=== PATIENT | female | born 1980 | race Caucasian/White ===

== ENCOUNTER 2024-04-01 22:08 | Observation (INO) | payer OTHER, SELFPAY ==
[2024-04-01 22:09] VITALS: PULSE 91
--- NOTE | 2024-04-01 22:09 | XRR_ITS ---
PROCEDURE INFORMATION: Exam: XR Chest Exam date and time: 04/01/2024 10:31 PM Age: 43 years old Clinical indication: Pain; Chest pressure; Additional info: Cp TECHNIQUE: Imaging protocol: Radiologic exam of the chest. Views: 1 view. COMPARISON: No relevant prior studies available. FINDINGS: Lungs: No definitive consolidation. Pleural spaces: No pleural effusion or pneumothorax. Heart/Mediastinum: Heart size appears within normal limits. Ovoid opacity in the right cardiophrenic angle likely reflects prominent epicardial fat pad. Bones/joints: No acute osseous abnormalities are seen. XR/XR chest 1V portable [id number] IMPRESSION: 1. Ovoid opacity in the right cardiophrenic angle likely reflects prominent epicardial fat pad. CT or lateral view can be obtained as clinically indicated. 2. No definitive evidence of acute cardiopulmonary disease.
[2024-04-01 22:15] VITALS: BP 177/110; PULSE 88; RESP 28; TEMP 36.9; O2SAT 100; BMI 38.7
--- NOTE | 2024-04-01 22:18 | ECG_ITS ---
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 Measurements Intervals [place] Rate: 94 P: 10 IN: 120 QRS: -7 QRSD: 90 T: 33 QT: 320 QTc: 400 Interpretive Statements SINUS RHYTHM MINIMAL VOLTAGE CRITERIA FOR LVH, CONSIDER NORMAL VARIANT [MEETS CRITERIA IN ONE OF: R(aVL), S(V1), R(V5), R(V5/V6)+S(V1)] No previous ECG available for comparison Electronically Signed On 04-02-2024 16:50:30 CDT by Lonnie Bernal M.D. [id number]
--- NOTE | 2024-04-01 22:22 | ED_ITS ---
HPI - Chest Pain 2 General: Chief Complaint: Chest Pain Stated Complaint: Chest Pains\Jaw\Neck Time Seen by Provider: 04/01/24 22:09 Source: patient Mode of arrival: ambulatory Limitations: no limitations History of Present Illness: 43-year-old female states she started sanchez ving chest pain roughly 2 hours ago. She is a pressure type pain across her chest and goes down her arm into her jaw she had some slight dyspnea and nausea with the pain. Rates the pain a 5 out of 10 currently she states it does hurt worse with deep inspiration denies any cough or fever Associated symptoms: Reports dyspnea and vomiting; Deny abdominal pain, fever(s) or nausea Review of Systems 2 Const: Denies: fever(s), chills, body aches or change in appetite Eyes: Denies: eye discomfort ENMT: Denies: throat pain or dental pain Card: Reports: chest pain Resp: Reports: dyspnea GI: Reports: vomiting; Denies: abdominal pain, nausea or diarrhea : Denies: dysuria Musc: Denies: neck pain or back pain Skin/Breast: Denies: rash Neuro: Denies: headache(s) Physical Exam 2 Const: COMMON NORMALS: no acute distress, patient oriented x3 and healthy appearing HENMT: COMMON NORMALS: normocephalic and atraumatic HEAD & SCALP: n ormocephalic and atraumatic Eye: COMMON NORMALS: Equal, round and reactive pupils present and EOMs intact bilaterally PUPIL: Yes Equal, round and reactive pupils present Neck/C-Spine: COMMON NORMALS: full ROM and supple Chest: COMMONS NORMALS: normal inspection of the chest and normal palpation of entire chest wall Resp: COMMON NORMALS: normal respiratory effort, No retractions, No use of accessory muscles and clear to auscultation bilaterally AUSCULTATION: clear to auscultation bilaterally Cardio: COMMON NORMALS: regular rate, regular rhythm and No murmurs present (Cardio) RATE: regular rate RHYTHM: regular rhythm GI: COMMON NORMALS: Normal to inspection, nondistended, normoactive bowel sounds present, Soft to palpation, non-tender and no masses PALPATION: Yes Soft to palpation Extremity: COMMON NORMALS: normal to inspection and full ROM Neuro: COMMON NORMALS: patient oriented x3, moves all extremities and no focal motor deficits Psych: COMMON NORMALS: mental status grossly normal, Normal thought process present and cooperative THOUGHT PROCESS: Normal thought process present Skin: COMMON NORMALS: no rashes or lesions noted and no wounds GENERAL SKIN EXAM: no rashes or lesions noted Course 2 Vital Signs: Vital signs: Vital Signs Temperature 98.4 F 04/01/24 22:15 Pulse Rate 80 04/02/24 00:55 Respiratory Rate 16 04/02/24 00:55 Blood Pressure 147/95 04/02/24 00:55 Pulse Oximetry 95 04/02/24 00:55 Oxygen Delivery Me thod Room Air 04/01/24 22:15 MDM - Chest Pain Medical Decision Making Patient presents here with chest pain is relieved with nitro her D-dimer here is negative troponins are negative as well she did have another episode of chest pain here that was relieved with nitro I spoke to the hospitalist and will admit for ACS rule out at this time. Medical Records I reviewed the patient's medical records. Lab Data I reviewed the patient's lab results. 04/01/24 22:25 04/01/24 22:25 Radiology Impressions Chest X-Ray 04/01/24 22:09 IMPRESSION: 1. Ovoid opacity in the right cardiophrenic angle likely reflects prominent epicardial fat pad. CT or lateral view can be obtained as clinically indicated. 2. No definitive evidence of acute cardiopulmonary disease. Laboratory Results WBC 10.43 10^3/uL (3.29-11.43) 04/01/24 22: RBC 5.07 10^6/uL (3.85-5.65) 04/01/24 22:25 Hgb 14.60 g/dL (11.27-16.99) 04/01/24 22: Hct 44.5 % (36-47) 04/01/24 22: MCV 87.8 fl (85-98) 04/01/24 22: MCH 28.8 pg (27-33) 04/01/24 22: MCHC 32.8 g/dL (30-55) 04/01/24 22: RDW 12.2 % (12.1-15.1) 04/01/24 22: Plt Count 272 10^3/cmm (157-399) 04/01/24 22: MPV 9.4 fL (7.4-10.4) 04/01/24 22: Neut % (Auto) 68.0 % 04/01/24 22: Lymph % (Auto) 22.3 % 04/01/24 22:25 [place] % (Auto) 8.3 % 04/01/24 22: Eos % (Auto) 0.6 % 04/01/24 22: Baso % (Auto) 0.4 % 04/01/24 22: Neut # (Auto) 7.09 10^3/uL (1.8-7.7) 04/01/24 22: Lymph # (Auto) 2.3 10^3/uL (0.8-4.8) 04/01/24 22: [place] # (Auto) 0.9 10^3/uL (0.2-0.9) 04/01/24: Eos # (Auto) 0.1 10^3/uL (0.0-0.8) 04/01/24 22: Baso # (Auto) 0.0 10^3/uL (0.0-0.1) 04/01/24: Nucleated RBC % (auto) 0 % 04/01/24: Nucleated RBCs # 0.0 /100WBC 04/01/24 22: D-Dimer <= 0.27 ug/mLFEU (0-0.59) 04/01/24 22: Sodium 138 mmol/L (136-145) 04/01/24 22: Potassium 4.1 mmol/L (3.5-5.1) 04/01/24: Chloride 100 mmol/L (98-107) 04/01/24 22: Carbon Dioxide 24 mmol/L (22-29) 04/01/24 22: Anion Gap 18.1 (5-19) 04/01/24 22: BUN 15 mg/dL (6-20) 04/01/24 22: Creatinine 0.7 mg/dL (0.5-0.9) 04/01/24 22: GFR Calculation 91.8 mL/min (90-130) 04/01/24 22: Glucose 88 mg/dL (65-115) 04/01/24 22: Calculated Osmolality 286 mOsm/kg (285-295) 04/01/24 22:25 Calcium 9.5 mg/dL (8.5-10.5) 04/01/24 22:25 Total Bilirubin 0.2 mg/dL (0.15-1.2) 04/01/24 22:25 AST 19 U/L (0-32) 04/01/24 22:25 ALT 26 U/L (0-33) 04/01/24 22:25 Alkaline Phosphatase 100 U/L (35-105) 04/01/24 22:25 Troponin T Baseline < 6 ng/L (0-10) 04/01/24 22:25 Troponin T 120 Minute 6.00 ng/L (0-10) 04/02/24 00:25 Delta Troponin T 0.67045 ABS# (0-10) 04/02/24 00:25 Total Protein 8.1 g/dL (6.6-8.7) 04/01/24 22:25 Albumin 4.8 g/dL (3.5-5.2) 04/01/24 22:25 Globulin 3.3 g/dL (1.3-4.6) 04/01/24 22:25 Lipase 106 U/L (13-60) H 04/01/24 22:25 All radiology interpretation(s) finalized by discharge EKG Data EKG 1: I personally reviewed and interpreted this EKG as follows: EKG interpretation date: 04/01/24 EKG interpretation time: 22:18 Interpretation: nsr hr 94 no stemi qrs 90 qtc 371 EKG 2: I personally reviewed and interpreted this EKG as follows: EKG interpretation date: 04/01/24 EKG interpretation time: 23:45 Interpretation: nsr hr [address] or t wave abnormalities qrs93 qtc 372 Discharge Plan Discharge Patient Disposition: Admitted As Inpatient Clinical Impression: Chest pain Condition: Stable Coding Level of Care Code ED Baler Operator for Savi Peter
[2024-04-01] MEDS: aspirin 81 mg Chew Tablet 324 MG PO (22:31)
[2024-04-01 22:32] LABS: Basophils % 0.4 %; Eosinophils # 0.1 10^3/uL (0.0-0.8); Eosinophils % 0.6 %; Hematocrit 44.5 % (36-47); Lymphocytes # 2.3 10^3/uL (0.8-4.8); Lymphocytes % 22.3 %; Mean Corpuscular HGB Conc 32.8 g/dL (30-55); Mean Corpuscular Hemoglobin 28.8 pg (27-33); Mean Corpuscular Volume 87.8 fl (85-98); Mean Platelet Volume 9.4 fL (7.4-10.4); Monocytes # 0.9 10^3/uL (0.2-0.9); Monocytes % 8.3 %; Neutrophils # 7.09 10^3/uL (1.8-7.7); Nucleated Red Blood Cells % 0 %; Platelet Count 272 10^3/cmm (157-399); Red Blood Count 5.07 10^6/uL (3.85-5.65); Red Cell Distribution Width 12.2 % (12.1-15.1); White Blood Count 10.43 10^3/uL (3.29-11.43)
[2024-04-01] MEDS: nitroglycerin 0.4 mg sublingual Tablet 0.400000000000000022 MG SUBLINGUAL (22:45)
[2024-04-01] MEDS: ondansetron 2 mg/ML SDV 2 mL 4 MG IVP (22:49)
[2024-04-01] MEDS: morphine 4 mg/mL SDV 1 mL IVP (22:49)
[2024-04-01 22:51] LABS: D Dimer <= 0.27 ug/mLFEU (0-0.59)
[2024-04-01 22:57] LABS: Troponin(5th) Baseline < 6 ng/L (0-10)
[2024-04-01 23:04] LABS: Alanine Aminotransferase 26 U/L (0-33); Albumin Level 4.8 g/dL (3.5-5.2); Alkaline Phosphatase 100 U/L (35-105); Aspartate Amino Transferase 19 U/L (0-32); Blood Urea Nitrogen 15 mg/dL (6-20); Calcium 9.5 mg/dL (8.5-10.5); Carbon Dioxide 24 mmol/L (22-29); Chloride 100 mmol/L (98-107); Creatinine Clr Calc Pharmacy 130.7757; Globulin 3.3 g/dL (1.3-4.6); Glomerular Filtration Rate 91.8 mL/min (90-130); Glucose 88 mg/dL (65-115); Lipase 106 U/L (13-60); Osmolality Calculated 286 mOsm/kg (285-295); Sodium 138 mmol/L (136-145); Total Bilirubin 0.2 mg/dL (0.15-1.2); Total Protein 8.1 g/dL (6.6-8.7)
[2024-04-01 23:05] VITALS: BP 152/75; PULSE 89; RESP 16; O2SAT 99
[2024-04-01 23:25] LABS: Anion Gap 18.1 (5-19); Potassium 4.1 mmol/L (3.5-5.1)
[2024-04-01 23:46] VITALS: BP 155/92; PULSE 87; RESP 16; O2SAT 97
[2024-04-02] VITALS (16 sets, daily range): BP systolic 114–147; BP diastolic 70–95; PULSE 80–103; RESP 16–20; TEMP 36.7–37.3; O2SAT 95–100; BMI 41.4
--- NOTE | 2024-04-02 00:09 | ECG_ITS ---
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 Measurements Intervals [place] Rate: 85 P: 14 OR: 128 QRS: -6 QRSD: 93 T: 31 QT: 330 QTc: 394 Interpretive Statements SINUS RHYTHM No previous ECG available for comparison Electronically Signed On 04-02-2024 16:53:05 CDT by Lonnie Bernal M.D. [id number]
[2024-04-02] MEDS: nitroglycerin 0.4 mg sublingual Tablet 0.400000000000000022 MG SUBLINGUAL ×4 (00:33→03:12)
[2024-04-02 00:52] LABS: Troponin 5 2HR Delta 0.00001 ABS# (0-10)
--- NOTE | 2024-04-02 02:00 | P.HP_ITS ---
Providers/Chief Complaint 2 Chief Complaint: Chest Pains\Jaw\Neck History of Present Illness Shakira Iraheta is a 43 year old female, mother of a special needs child with autism and taking care of her father at home who has dementia, with history of migraine headaches, ADHD, sleeve gastrectomy, PCOS, recently is being assessed for possibility of rheumatologic disease by her primary provider, awaiting referral to rheumatology, although states wait time is about a year for question of possible rheumatologic condition. Presented to the hospital due to about 2 hours of central lower chest pain, initially radiating to her jaw. Reported radiation to the right arm to the ER physician. Received relief from nitroglycerin in ER. Initial blood pressure very elevated 177/110 without history of hypertension. Checks her blood pressure normally once a day and systolic blood pressures usually around 120s. Denies any preceding episodic chest pains. Denies any cough, shortness of breath. Troponin normal at baseline and 2 hours. EKG machine read as sinus rhythm, unremarkable, on examination appears to have some questionable atypical ST elevation isolated to lead II noted by ER physician, not suggestive of STEMI. Lipase with elevation up to 106. Chest x-ray with ovoid opacity in the right cardiophrenic angle question of epicardial fat pad. Otherwise without definitive cardiopulmonary abnormality. Reports that in the past had history of paroxysms of atrial fibrillation. Additionally has been having intertrigo yeast rash in the groin skin folds. Review of Systems 2 Const: Denies: fever(s), chills, body aches or malaise ENMT: Denies: throat pain, oral sores or ear or mastoid pain Card: Reports: chest pain and lightheadedness (occasional); Denies: edema or dyspnea on exertion Resp: Denies: dyspnea, productive cough, change in phlegm color or hemoptysis GI: Denies: abdominal pain, nausea, vomiting, diarrhea, constipation, hematochezia or melena : Denies: flank pain, urinary frequency or hematuria Musc: Denies: back pain, joint swelling or joint redness Skin/Breast: Reports: rash (groin intertrigo); Denies: new lesions Neuro: Denies: confusion Medications/Allergies Allergies Allergy/AdvReac Type Severity Reaction Status Date / Time bupropion [From Wellbutrin] Allergy ADR-Hyperte Verified 04/01/24 22:26 nsion PFSH Acute 2 PFSH: Medical History Paroxysmal atrial fibrillation Pericardial cyst Migraines ADHD PCOS (polycystic ovarian syndrome) Surgical History History of sleeve gastrectomy Family History Family/Other Autism Child Father Dementia Social History Smoking and tobacco/nicotine status: never used tobacco/nicotine Alcohol intake: never Lives independently: Yes Household members: family Current occupational status: employed Vitals/I&O/Wt Last Vital Signs Temp 98.4 F 04/01/24 22:15 Pulse 80 04/02/24 00:55 Resp 16 04/02/24 00:55 BP 147/95 04/02/24 00:55 Pulse Ox 95 04/02/24 00:55 O2 Del Method Room Air 04/01/24 22:15 Weight last 48 hrs Weight 108.862 kg Physical Exam 2 Const: COMMON NORMALS: patient oriented x3 and alert GENERAL APPEARANCE: c ooperative NUTRITIONAL APPEARANCE: overweight ORIENTATION/CONSCIOUSNESS: Y es awake HENMT: COMMON NORMALS: oropharynx normal Neck/C-Spine: COMMON NORMALS: no JVD Resp: COMMON NORMALS: normal respiratory effort and clear to auscultation bilaterally AUSCULTATION: clear to auscultation bilaterally Cardio: COMMON NORMALS: no JVD, regular rhythm, S1 normal heart sound present, S2 normal heart sound present and No murmurs present (Cardio) RHYTHM: regular rhythm HEART SOUNDS: S1 normal heart sound present and S2 normal heart sound present GI: COMMON NORMALS: Normal to inspection, nondistended, normoactive bowel sounds present, Soft to palpation and non-tender PALPATION: Yes Soft to palpation Extremity: COMMON NORMALS: no joint enlargement and no pedal edema Neuro: COMMON NORMALS: patient oriented x3 and moves all extremities S ENSORIUM/ORIENTATION: Yes alert Data 04/01/24 22:25 04/01/24 22:25 A&P Assessment and plan (1) Chest pain: Central lower chest chest pain. Initially with radiation to the jaw. Questionable abnormality/ST atypical elevation appears isolated to lead 2 was noted by ER physician, discussed with ED provider and with her. She states that she had previously had an abnormal stress test back in 2011 or 2012, at that time underwent coronary angiography which was largely unremarkable. She did have a very elevated blood pressure on presentation 177/110, no history of hypertension in the past, but could possibly be having episodic hypertension of which she is unaware. Possible hypertensive urgency on presentation. Did respond to nitroglycerin. Assess for possible unstable angina. Takes meloxicam at home, this puts her at risk of DC, elevated blood pressure, as well as gastritis as below. Discussed with her to discontinue NSAIDs due to these multiple risk, and she should not be taking any NSAIDs given prior sleeve gastrectomy. She verbalized understanding and agreement. Otherwise central lower chest pain, noted also lipase elevation up to 106, not high enough to diagnose pancreatitis, but could be secondary to local inflammation possibly gastritis versus duodenitis discussed with her. Will follow-up lipase level. She does take meloxicam at home. Continue PPI, I discussed with her increasing to twice daily and adding sucralfate. Consider follow-up EGD. Additionally unclear avoid structure right cardiophrenic angle, close for assessment discussed with her by CT chest. She does on questioning reports history of pericardial cyst for which was offered additional assessment by VATS versus removal by thoracotomy, however, given invasiveness of the procedures further assessment was not undertaken. Assess CT to reassess size or for any changes in the unidentified pericardial cyst. Additionally question of possible rheumatologic disease being investigated by her primary provider In [place]. She does not normally gets her care here and is new to this facility. She works here part of the year, and part of the year stays in [place] from where she works remotely. Requesting records from PCPs office. Aspirin, check lipid profile, she states recently just had an A1c drawn. Monitor on telemetry. Complete troponin EKG series. Obtain echo. Reassess symptoms. Reviewed vitals, CBC, D-dimer, CMP, lipase, baseline and 2-hour troponin, EKG, chest x-ray. (2) Elevated blood pressure reading: Possible episodic hypertension. Responded to nitroglycerin. Reassess blood pressure. Discussed with her we will need to monitor blood pressure 3-4 times a day at home as she may be missing episodes of hypertension. Episodic hypertension may be as dangerous as persistent hypertension as discussed with her. Additionally meloxicam increases her risk of hypertension as well as DC and strokes, and she should avoid it due to history of sleeve gastrectomy. Additionally discussed with her regarding Ritalin causing risk of elevated blood pressure, among other adverse effects. (3) Elevated lipase: Unclear cause of lipase elevation up to 106. Not high enough to diagnose pancreatitis, however, possible local inflammation of possible gastritis or duodenitis possibly secondary to NSAID use. Recheck lipase level. Assess for any possible rise to suggest pancreatitis. She otherwise is not having any abdominal tenderness on palpation. (4) Abnormal chest xray: Ovoid structure in the right cardiophrenic angle. As above. (5) NSAID long-term use: Needs to discontinue and avoid NSAIDs. She states meloxicam was started together with Protonix to help control inflammatory symptoms of possible unidentified rheumatologic disease as above with PCP. Requesting records. Plan Intertrigo: Nystatin cream. ADHD: On RitalinDiscussed risk of complications including hypertension. Paroxysmal atrial fibrillation: Reports history of episodes of atrial fibrillation In the past. Abnormal stress test: Reports back in 2011 or 2012 had an abnormal stress test, underwent coronary angiogram which ischemia was unremarkable. Possible rheumatologic disease: She states meloxicam was started together with Protonix to help control inflammatory symptoms of possible unidentified rheumatologic disease as above with PCP. Requesting records. PCOS Attestations 2 Medical Necessity Statement*: Place in observation for additional assessment of episode of chest pain, elevated blood pressure without history of hypertension in a lady with possible hypertensive urgency, multiple possible contributing medications, history of sleeve gastrectomy, history of normal stress test, unidentified pericardial cyst in a lady with multiple medical problems who does not normally get her care at this facility. and High Time for a total of 95 minutes, includes reviewing past or interval history, examining/interviewing patient, placing orders, counseling patient/family/other support, discussing plan of care with staff, communicating with other healthcare providers, documenting encounter and coordinating care Diagnoses Chest pain R07.9 Elevated blood pressure reading R03.0 Elevated lipase R74.8 Abnormal chest xray R93.89 NSAID long-term use Z79.1
--- NOTE | 2024-04-02 02:08 | CTR_ITS ---
PROCEDURE INFORMATION: Exam: CT Chest Without Contrast; Diagnostic Exam date and time: 04/02/2024 2:15 AM Age: 43 years old Clinical indication: Abnormal findings; Other: See exam info; Additional info: Assess ovoid structure R pericardium, assess dimensions, HX unidentified pericardial cyst TECHNIQUE: Imaging protocol: Diagnostic computed tomography of the chest without contrast. Radiation optimization: All CT scans at this facility use at least one of these dose optimization techniques: automated exposure control; mA and/or kV adjustment per patient size (includes targeted exams where dose is matched to clinical indication); or iterative reconstruction. COMPARISON: CR (CHEST, ) 04/01/2024 10:31 PM RADIATION DOSE METRICS: Total DLP (mGy-cm): 642.9 FINDINGS: Thyroid: Symmetric unremarkable thyroid lobes. Lungs: Unremarkable. No consolidation. No masses. Pleural spaces: Unremarkable. No pneumothorax. No pleural effusion. Heart: Unremarkable cardiac chambers. Negative for pericardial effusion. Circumscribed simple fluid density right pericardial cyst measures 5.7 cm x 3.8 cm. Coronary arteries: Negative for coronary artery calcifications. Esophagus: Unremarkable thoracic esophagus. Lymph nodes: Unremarkable. No enlarged lymph nodes. Vasculature: Unremarkable. No aortic aneurysm. Gallbladder and bile ducts: Cholecystectomy. Nondilated biliary system. Stomach: Gastric sleeve surgical change. Bones/joints: Unremarkable. No acute fracture. Soft tissues: Unremarkable. CT/CT chest wo con [id number] IMPRESSION: 1. Positive for a simple pericardial cyst. 2. Negative for acute chest pathology.
--- NOTE | 2024-04-02 02:34 | USCV_ITS ---
Shakira Iraheta Age: 43 Gender: F : 1980 Exam Date: 04/02/2024 03:18 Ordering Phys: Zhao Pate MD Technologist: COOKIE [place] [facility] [place]ication: chest pain. No history of cardiac intervention per patient. BP: 143 / 79 HR: 86 Rhythm: Sinus Technical Quality: Adequate MEASUREMENTS (Male / Female) Normal Values 2D ECHO LV Diastolic Diameter PLAX 3.1 cm 4.2 - 5.9 / 3.9 - 5.3 cm IVS Diastolic Thickness 1.6 cm 0.6 - 1.0 / 0.6 - 0.9 cm IVS Systolic Thickness 2.2 cm LVPW Diastolic Thickness 1.5 cm 0.6 - 1.0 / 0.6 - 0.9 cm LVPW Systolic Thickness 1.6 cm LVOT Diameter 1.8 cm LV Ejection Fraction 2D Teich 60.6 % LV Ejection Fraction MOD 2C 49.1 % LV Ejection Fraction 2C AL 50.8 % LA Diameter 3.4 cm LA Sys Volume AL 65.3 cm cubed LA Sys Volume Index AL 28.4 cm cubed/m squared Aorta at Sinotubular Diameter 2.8 cm IVC Diameter 2.1 cm M-MODE LA Ao Ratio MM 1.4 AV Cusp Separation MM 2.0 cm DOPPLER AV Peak Velocity 149.0 cm/s LVOT Peak Velocity 122.0 cm/s AV Area Cont Eq vti 2.5 cm squared AV Area Cont Eq pk 2.0 cm squared MV Peak Velocity 107.0 cm/s MV Area PHT 5.3 cm squared Mitral E to A Ratio 1.7 TV Peak E Velocity 75.0 cm/s PV Peak Velocity 121.0 cm/s FINDINGS Left Ventricle Left ventricle is normal in size. LV systolic function is normal with EF of 55-60%. No regional wall motion abnormalities. Right Ventricle Normal in size and function Right Atrium Normal in size Left Atrium Normal in size Mitral Valve Structurally normal mitral valve. Mild mitral regurgitation. Aortic Valve Structurally normal aortic valve. No significant stenosis or regurgitation. Tricuspid Valve Insufficient TR jet to calculate RVSP Pulmonic Valve Mild pulmonic regurgitation Pericardium Normal Aorta Normal in size IVC Appears to be normal CONCLUSIONS LV systolic function is normal with EF 55 to 60%. Mild mitral regurgitation Mild pulmonic regurgitation No comparion studies are available. Lonnie Bernal MD (Electronically Signed) Final Date: 02 Apr 2024 18:03 S
[2024-04-02] MEDS: enoxaparin 40 mg/0.4 mL Syringe SUBCUT (02:54)
[2024-04-02] MEDS: pantoprazole 40 mg SDV 80 MG IVP (02:55)
[2024-04-02] MEDS: morphine 4 mg/mL SDV 1 mL IVP ×3 (04:06→21:08)
[2024-04-02] MEDS: lidocaine 2% viscous 15 ML, aluminum-mag hydrox-simethicon 30 ML, sucralfate oral liq 1 GM PO (04:06)
--- NOTE | 2024-04-02 04:44 | ECG_ITS ---
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 Measurements Intervals [place] Rate: 92 P: 25 GA: 128 QRS: 5 QRSD: 99 T: 64 QT: 323 QTc: 400 Interpretive Statements SINUS RHYTHM ST ELEVATION, CONSIDER INFERIOR INJURY [MARKED ST ELEVATION W/O NORMALLY INFLECTED T-WAVE IN II/aVF] ACUTE VT Compared to ECG 04/01/2024 23:45:31 ST (T wave) deviation now present Myocardial infarct finding now present Electronically Signed On 04-02-2024 16:52:52 CDT by Lonnie Bernal M.D. [id number]
--- NOTE | 2024-04-02 05:01 | PC.RESP ---
EKG ORDERED 04/01/2024 AT 2209 WHILE PATIENT IN ER, NOT COMPLETED PRIOR TO COMING TO THE FLOOR.
[2024-04-02 06:01] LABS: Troponin 5 6HR Delta 0.00001 ng/L (0-12)
[2024-04-02 06:08] LABS: Alanine Aminotransferase 22 U/L (0-33); Albumin Level 4.4 g/dL (3.5-5.2); Alkaline Phosphatase 85 U/L (35-105); Anion Gap 16.8 (5-19); Aspartate Amino Transferase 16 U/L (0-32); Blood Urea Nitrogen 11 mg/dL (6-20); Calcium 8.6 mg/dL (8.5-10.5); Carbon Dioxide 24 mmol/L (22-29); Chloride 99 mmol/L (98-107); Chol HDL Ratio 3.29 mg/dL (0.0-4.40); Cholesterol 191 mg/dL (0-200); Creatinine Clr Calc Pharmacy 151.6315; Globulin 2.8 g/dL (1.3-4.6); Glomerular Filtration Rate 109.6 mL/min (90-130); Glucose 111 mg/dL (65-115); HDL Cholesterol 58 mg/dL (60-100); LDL Cholesterol Calculated 120 mg/dL (50-129); LDL HDL Ratio 2.07 RATIO (0.00-3.22); Lipase 43 U/L (13-60); Osmolality Calculated 280 mOsm/kg (285-295); Potassium 4.8 mmol/L (3.5-5.1); Sodium 135 mmol/L (136-145); Total Bilirubin 0.5 mg/dL (0.15-1.2); Total Protein 7.2 g/dL (6.6-8.7); Triglycerides 63 mg/dL (0-150)
[2024-04-02] MEDS: sucralfate 1 gm Tablet PO ×3 (06:28→21:03)
[2024-04-02 08:04] LABS: HCG Qualitative Urine. Negative (Negative)
--- NOTE | 2024-04-02 08:45 | P.CONIM_ITS ---
Providers/Reason For Consult 2 Consulting Physician/Specialty*: Lonnie Bernal MD/ Cardiology Reason for Consult*: Worsening angina Requesting Physician: Dr Pate Attending Physician: Lalita Callahan MD History of Present Illness History of Present Illness Shakira Iraheta is a 43 year old female with past medical history of hypertension who presented to hospital with epigastric and substernal chest pain that has been radiating to the jaw. This started yesterday. Troponin has not increased however EKG has been showing to make changes. Nonspecific ST elevation was seen in lead II only before. This morning has nonspecific ST elevation in lead aVF as well. Says still having on and off chest discomfort. Of note her blood pressure has been very high with presenting blood pressure of 180 systolic. Patient also complains of shortness of breath on exertion. Review of Systems 2 Const: Denies: fever(s), chills, body aches or change in appetite Eyes: Denies: eye discomfort ENMT: Denies: throat pain or dental pain Card: Reports: chest pain Resp: Reports: dyspnea GI: Reports: vomiting; Denies: abdominal pain, nausea or diarrhea : Denies: dysuria Musc: Denies: neck pain or back pain Skin/Breast: Denies: rash Neuro: Denies: headache(s) Medications/Allergies Home Medications Medication Instructions Recorded Confirmed Last Taken Type buspirone 5 mg tablet 5 mg PO BID PRN Anxiety 04/02/24 04/02/24 Unknown History cyclobenzaprine 10 mg tablet 10 mg PO TID PRN muscle spasms 04/02/24 04/02/24 Unknown History dextroamphetamine-amphetamine ER 1 cap PO QAM 04/02/24 04/02/24 04/01/24 History 20 mg 24hr capsule,extend release meloxicam 15 mg tablet 15 mg PO DAILY 04/02/24 04/02/24 04/01/24 History ondansetron 4 mg disintegrating See Rx Instructions .Route .COMPLEX 04/02/24 04/02/24 Unknown History tablet pantoprazole 40 mg tablet,delayed 40 mg PO DAILY 04/02/24 04/02/24 04/01/24 History release tramadol 50 mg tablet 50 mg PO DAILY PRN Pain 04/02/24 04/02/24 Unknown History vitamin A palmitate 10,000 1 tab PO DAILY 04/02/24 04/02/24 Unknown History unit-ergocalciferol (D2) 400 unit tablet amoxicillin 875 mg-potassium 1 tab PO BID #6 tabs 04/03/24 Unknown Rx clavulanate 125 mg tablet metoprolol tartrate 25 mg tablet 25 mg PO BID PRN pulse>90 or 04/03/24 Unknown Rx bp>130/90mmhg #60 tabs Allergies Allergy/AdvReac Type Severity Reaction Status Date / Time bupropion [From Wellbutrin] Allergy ADR-Hyperte Verified 04/03/24 21:15 nsion Current Medications Generic Name Dose Route Start Last Admin Trade Name Freq PRN Reason Stop Dose Admin Enoxaparin Sodium 40 mg 04/02/24 02:34 04/02/24 02:54 Enoxaparin 40 Mg/0.4 Ml Syringe SUBCUT 40 mg Q24H CYRIL Administration Morphine Sulfate 4 mg 04/02/24 03:26 04/02/24 04:06 Morphine 4 Mg/Ml Sdv 1 Ml IVP 4 mg Q4H PRN Administration SEVERE PAIN Nitroglycerin 0.4 mg 04/01/24 22:21 04/02/24 03:12 Nitroglycerin 0.4 Mg Sublingual Tablet SUBLINGUAL 0.4 mg Q5M PRN Administration CHEST PAIN Sucralfate 1 gm 04/02/24 07:00 04/02/24 06:28 Sucralfate 1 Gm Tablet PO 1 gm AC&BEDTIME CYRIL Administration PFSH Acute 2 PFSH: Medical History Paroxysmal atrial fibrillation Pericardial cyst Migraines ADHD PCOS (polycystic ovarian syndrome) Surgical History History of sleeve gastrectomy Family History Family/Other Autism Child Father Dementia Social History Smoking and tobacco/nicotine status: never used tobacco/nicotine Alcohol intake: never Lives independently: Yes Household members: family Current occupational status: employed Vitals/I&O/Wt Last Vital Signs Temp 98.1 F 04/02/24 07:38 Pulse 101 H 04/02/24 07:38 Resp 18 04/02/24 07:38 BP 140/90 04/02/24 07:38 Pulse Ox 97 04/02/24 07:38 O2 Del Method Room Air 04/02/24 07:38 Weight last 48 hrs Weight 237 lb 5 oz Weight 257 lb Weight 240 lb Physical Exam 2 Narrative: GENERAL: Patient is alert, awake and oriented x3. [] NECK: No jugular vein distension. [] HEENT: No cyanosis. No icterus. No pallor. [] HEART: Regular S1 and S2. No murmur, rub or gallop. [] LUNGS: Clear to auscultate bilaterally. [] CENTRAL NERVOUS SYSTEM: Grossly nonfocal. [] EXTREMITIES: Lower extremities with 1+ edema bilaterally Data 04/03/24 04:01 04/03/24 04:01 A&P Assessment and plan (1) Chest pain: (2) Elevated blood pressure reading: Plan Patient's chest pain symptoms are typical and has dynamic EKG changes. Findings are consistent with unstable angina. Will proceed with coronary angiogram with possible PCI. Patient blood pressure is improved. Will need better blood pressure control. Lipase level was mildly elevated. Management per primary team. Thank you for involving us with care of this patient. Please call with questions. Consult Attestations 2 Medical Necessity Statement: Care expected to cross 2 midnights. Coding Level of Care Code Acute Code for Chg Fwd Diagnoses Chest pain R07.9 Elevated blood pressure reading R03.0
--- NOTE | 2024-04-02 08:54 | XACV_ITS ---
Exam Room: [facility] Ht: 168 cm Wt: 108 kg BSA: 2.29 m2 Gender: Female : 1980 Any Known Allergies: Other Exam Priority: Routine Procedure(s): Procedure Description: Diagnostic procedure Procedure Description: Left Heart Catheterization Procedure Description: Left ventriculography Procedure Description: Coronary Angiography Diagnostic Cath Status: Urgent Diagnostic Findings * No significant disease noted in the Left Main, Left Anterior Descending, Right, or Circumflex coronary arteries. * Coronary angiography shows left dominance. Conclusions 1. No significant disease noted in the Left Main, Left Anterior Descending, Right, or Circumflex coronary arteries. 2. Normal left ventricular systolic function. Ejection fraction of 60%. Recommendations * Aggressive risk factor modification and blood pressure control. * Outpatient cardiology follow-up in 2 to 4 weeks. Interventional RX Recommendation: medical therapy and/or counseling Diagnostic RX Recommendation: medical therapy and/or counseling Ventriculography Ejection Fraction: 60.0 % Pressures Phase:Rest AO : 108 / 90 ( 99 ) @ 12:05:00 PM 127 / 84 ( 102 ) @ 12:09:00 PM 127 / 85 ( 104 ) @ 12:15:00 PM 129 / 87 ( 104 ) @ 12:15:00 PM LV : 147 / -10 / 17 @ 12:13:00 PM 152 / 0 / 28 @ 12:15:00 PM 147 / 1 / 26 @ 12:15:00 PM Valves Phase:DefaultPhase AV : 18.0 @ 11:28:01 AM 18.0 @ 11:28:01 AM AV Mean Gradient: 13.0 @ 11:28:01 AM Clinical Evaluation EBL: 5mL-10mL Procedural Details Procedure Consent Obtained. Pre-Procedure Time Out. Identified patient by full name and date of as verbalized by the patient/guarantor. Does the consent match the physician's order: Yes. Accurate & Complete Informed Consent: Yes. Inpatient/Outpatient History & Physical on Chart: Yes. If H&P is completed, is and addenduem needed: No; If yes, is the addendum complete: N/A. Visualize and Verify Site with Patient/Guarantor: N/A. Relevant Radiology Images available: N/A. Pre-op teaching completed and patient verbalized understanding. The risks, benefits, and alternatives of sedation and/or procedure were discussed by physician. The patient agrees to continue. Procedure started. Physician arrived. 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 Chest Pain Symptom Assessment: Typical Angina Symptoms. Cardiovascular Instability: No. Correct patient, site and procedure confirmed by cath team. PERRLA. 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 Lungs clear x 5 lobes. Oxygen started at 2liters/min via nasal canula. right groin was prepped with chloroprep then draped in the usual sterile fashion. right radial was prepped with chloroprep then draped in the usual sterile fashion. IV Site on Arrival: 20 gauge in the right anticubital. IV Fluids: 0.9% NaCl at KVO. 0 mL infused prior to rn cardiac cath. Baseline sample Acquired. HR: 160 BPM. Equipment: 6F - Femoral. Cardiac Cath Pack. ACIST Manifold Kit Model BT 2000. Heparinized Saline (2 units/mL), 1000 mL bag. Kit, Micropuncture. Physician scrubbed in. Immediate Pre-Procedure Time Out. Correct Patient: Yes; Correct Procedure: Yes; Correct Site: Yes; Correct Patient Position: Yes; Correct Supplies: Yes; Dried Flammable Prep: Yes; Blood Products Available: N/A;. Lidocaine 1% infiltrated to the right groin. Arterial access obtained with micropuncture set using ultrasound guide. A 5 [place] JL4 catheter in over wire. Multiple views taken of left coronary artery. Catheter removed over the exchange wire. [place] 5 [place] JR4 catheter in over wire. Multiple views taken of right coronary artery. Catheter removed over the exchange wire. A 5 [place] Angled Pig catheter in over wire. EDP Sample taken: LV 147/-11,17; HR: 116 BPM; SpO2: 97%. LV gram performed in LEON @ 10 mL/second for a total of 30 mL. EDP Sample taken: LV 152/0,28; HR: 140 BPM; SpO2: 96%. Pullback taken: LV 147/1,26; AO 127/85(104); Mean: 13mmHg, Peak to Peak: 18mmHg, SEP: 13sec/min; HR: 116 BPM; SpO2: 96%. Catheter removed over the exchange wire. A Right femoral angiogram was performed to determine safe placement of closure device. Lidocaine 1% infiltrated to the right groin. A Mynx was successful obtaining hemostatsis at the Right Femoral artery insertion site. Mynx placed without complications. No signs or symptoms of hematoma noted. Sterile dressing applied per usual sterile fashion. Post Procedure: Pulses reassessed and unchanged. PERRLA. 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 No VTE prophylaxis required. Medication's Wasted: Heparin = 1000 units. Total IV fluids: 50 mL. Contrast type used: Omnipaque 300 mgI/mL, 500 mL bottle. Post-op diagnosis: non obstructive CAD. Complications: none. Estimated blood loss: 5mL-10mL. Responsiveness - Normal response to verbal stimuli; alert and oriented, PERRLA. Airway - Unaffected, no intervention required; spontaneous ventilation. Circulation: W/N/L, pulses unchanged. Nausea/Vomiting: No. Procedure completed. Patient transferred by bed to 1st floor. Vital chart was stopped. Access Site Site: Right Femoral artery Sheath Size: 6 Fr Hemostasis Method: Mynx Hemostasis Success: Successful Procedure Medications Start: 10:49 AM Stop: 10:49 AM Medication: Versed Amount: 1 mg Route: I.V. Start: 10:56 AM Stop: 10:56 AM Medication: Versed Amount: 1 mg Route: I.V. Start: 11:02 AM Stop: 11:02 AM Medication: Fentanyl Amount: 25 mcg Route: I.V. Start: 11:10 AM Stop: 11: AM Medication: Fentanyl Amount: 25 mcg Route: I.V. Start: 11:18 AM Stop: :18 AM Medication: Fentanyl Amount: 25 mcg Route: I.V. Start: 11:14 AM Stop: :14 AM Medication: Fentanyl Amount: 25 mcg Route: I.V. I, the attending physician, have reviewed and verified all procedure medications. Yes, all medications given per verbal order History/Risk Factors Hypertension: No Dyslipidemia: No Peripheral Arterial Disease (PAD): No Myocardial Infarction (NV): No Obesity: Yes Renal Disease: No Prior Interventions PCI: No CABG: No Valve Surgery: No Report Signatures Finalized by Lonnie Bernal MD on 04/07/2024 10:07 PM
--- NOTE | 2024-04-02 10:26 | PC.NURSE ---
Pt awaiting angiogram, then will transfer to CSU from there. Bed currently unavailable in CSU.
--- NOTE | 2024-04-02 10:54 | W.PM.OPSUD ---
Surgery/Procedure H&P Update DATE OF PROCEDURE: April 02, 2024 DATE H&P PERFORMED: 04/02/24 H&P UPDATE INFORMATION: I have reviewed H&P completed within last 30 days, I have examined patient prior to procedure and No changes to prior documentation CHANGES TO PREVIOUS DOCUMENTATION: PREOP DIAGNOSIS: Worsening angina PRIMARY INDICATION FOR PROCEDURE: Worsening angina PLANNED PROCEDURE: Left heart cath with possible percutaneous coronary intervention PATIENT REASSESSED PRIOR TO SEDATION, WITH NO CHANGE NOTED: Yes PHYSICAL EXAM: alert, oriented x 3 and clear to auscultation bilaterally AIRWAY EVAL/ANESTHESIA PLAN: normal airway, ASA III, Local Anesthesia, Risks, benefits & alternatives of sedation and/or procedure discussed and Patient agrees to continue as planned ADDITIONAL INFORMATION: Moderate sedation
--- NOTE | 2024-04-02 11:54 | PM.MISC ---
Miscellaneous Note Note: Patient was complaining of chest pain for angiogram Plan for angiogram around 10:[address] Bernal told us about possible angiogram timing Hemodynamically stable There is strong family history Mother is at the bedside Patient is not She is agreeable with the plan D-dimer is unremarkable
--- NOTE | 2024-04-02 15:31 | PC.NURSE ---
ambulated down to bathroom no bleeding or hematoma on site post 4 hr bedrest.
[2024-04-02] MEDS: pantoprazole DR 40 mg Tablet PO (18:26)
--- NOTE | 2024-04-02 18:47 | CTR_ITS ---
PROCEDURE INFORMATION: Exam: CT Abdomen And Pelvis Without Contrast Exam date and time: 04/02/2024 9:48 PM Age: 43 years old Clinical indication: Abdominal pain; Additional info: Gsdtric pain TECHNIQUE: Imaging protocol: Computed tomography of the abdomen and pelvis without contrast. Radiation optimization: All CT scans at this facility use at least one of these dose optimization techniques: automated exposure control; mA and/or kV adjustment per patient size (includes targeted exams where dose is matched to clinical indication); or iterative reconstruction. COMPARISON: CT chest wo con [id number] 04/02/2024 2:15 AM RADIATION DOSE METRICS: Total DLP (mGy-cm): 1215 FINDINGS: Lungs: There is bibasilar atelectasis along with tiny bilateral pleural effusions. Heart: There is a 4.8 cm right epicardial cyst along with minimal pericardial effusion. Liver: Normal. No mass. Gallbladder and bile ducts: The gallbladder has been resected. Pancreas: Normal. No ductal dilation. Spleen: Normal. No splenomegaly. Adrenal glands: Normal. No mass. Kidneys and ureters: Normal. No hydronephrosis. Stomach and bowel: There is evidence of previous gastric surgery. Appendix: No evidence of appendicitis. Intraperitoneal space: Unremarkable. No free air. No significant fluid collection. Vasculature: Unremarkable. No abdominal aortic aneurysm. Lymph nodes: Unremarkable. No enlarged lymph nodes. Urinary bladder: Unremarkable as visualized. Reproductive: There is an intrauterine device properly positioned within the uterus. There is a 4.1 cm hemorrhagic cyst involving the right ovary. Bones/joints: Unremarkable. No acute fracture. Soft tissues: Unremarkable. CT/CT abdomen pelvis wo con [id number] IMPRESSION: Over the past day there has been interval development of extensive bibasilar atelectasis along with tiny pleural effusions. This could signify developing bibasilar pneumonia.
[2024-04-02 20:01] LABS: Triglycerides 62 mg/dL (0-150)
[2024-04-02 22:19] LABS: Estmated Average Glucose 105; Hemoglobin A1C 5.3 % (4.0-6.0)
[2024-04-03 01:30] VITALS: BP 119/63; PULSE 102; RESP 18; TEMP 36.6; O2SAT 98
[2024-04-03] MEDS: enoxaparin 40 mg/0.4 mL Syringe SUBCUT (01:36)
[2024-04-03 04:00] VITALS: BP 114/58; PULSE 104; RESP 18; TEMP 37.2; O2SAT 96
[2024-04-03 04:16] LABS: Basophils % 0.2 %; Eosinophils # 0.1 10^3/uL (0.0-0.8); Eosinophils % 0.7 %; Hematocrit 36.7 % (36-47); Lymphocytes # 1.7 10^3/uL (0.8-4.8); Lymphocytes % 19.2 %; Mean Corpuscular HGB Conc 32.2 g/dL (30-55); Mean Corpuscular Hemoglobin 28.6 pg (27-33); Mean Corpuscular Volume 88.9 fl (85-98); Mean Platelet Volume 9.5 fL (7.4-10.4); Monocytes # 1.3 10^3/uL (0.2-0.9); Monocytes % 14.6 %; Neutrophils # 5.84 10^3/uL (1.8-7.7); Neutrophils % 64.9 %; Nucleated Red Blood Cells % 0 %; Platelet Count 220 10^3/cmm (157-399); Red Blood Count 4.13 10^6/uL (3.85-5.65); Red Cell Distribution Width 12.2 % (12.1-15.1)
[2024-04-03 04:41] LABS: Alanine Aminotransferase 18 U/L (0-33); Albumin Level 3.5 g/dL (3.5-5.2); Alkaline Phosphatase 66 U/L (35-105); Anion Gap 14.2 (5-19); Aspartate Amino Transferase 10 U/L (0-32); Blood Urea Nitrogen 12 mg/dL (6-20); Calcium 8.8 mg/dL (8.5-10.5); Carbon Dioxide 23 mmol/L (22-29); Chloride 104 mmol/L (98-107); Creatinine Clr Calc Pharmacy 129.9698; Glomerular Filtration Rate 91.8 mL/min (90-130); Glucose 105 mg/dL (65-115); Osmolality Calculated 284 mOsm/kg (285-295); Potassium 4.2 mmol/L (3.5-5.1); Sodium 137 mmol/L (136-145); Total Bilirubin 0.3 mg/dL (0.15-1.2); Total Protein 6.5 g/dL (6.6-8.7)
[2024-04-03 05:09] VITALS: PULSE 92
[2024-04-03] MEDS: sucralfate 1 gm Tablet PO (06:48)
--- NOTE | 2024-04-03 07:12 | P.PN_ITS ---
Subjective 2 Subjective: Patient is doing well. no chest pain. Coronary angiogram yesterday did not show significant CAD. Vitals/I&O/Wt Last Vital Signs Temp 98.9 F 04/03/24 04:00 Pulse 92 04/03/24 05:09 Resp 18 04/03/24 04:00 BP 114/58 04/03/24 04:00 Pulse Ox 96 04/03/24 04:00 O2 Del Method Room Air 04/03/24 04:00 04/02/24 04/03/24 04/03/24 22:59 06:59 14:59 Intake Total 360 / 720 Balance 360 / 720 Weight last 48 hrs Weight 258 lb 4 oz Weight 237 lb 5 oz Weight 257 lb Weight 240 lb Physical Exam 2 Narrative: GENERAL: Patient is alert, awake and oriented x3. [] NECK: No jugular vein distension. [] HEENT: No cyanosis. No icterus. No pallor. [] HEART: Regular S1 and S2. No murmur, rub or gallop. [] LUNGS: Clear to auscultate bilaterally. [] CENTRAL NERVOUS SYSTEM: Grossly nonfocal. [] EXTREMITIES: Lower extremities with 1+ edema bilaterally. Data 04/03/24 04:01 04/03/24 04:01 A&P Assessment and plan (1) Chest pain: (2) Elevated blood pressure reading: Plan Patient had presented with chest pain symptoms that were typical andDynamic EKG changes. Concern was for worsening angina/unstable angina.Coronary angiogram was performed yesterday that did not reveal significant CAD. Likely symptoms related to elevated blood pressure. Blood pressure is controlled now. Patient can be started on low-dose beta-yoselyn. She can maintain a log of blood pressure reading and bring to her cardiology office appointment. Echo shows normal LV systolic function. Thank you for involving us with care of this patient. Please call with questions. Attestations 2 Medical Necessity Statement*: Care expected to cross 2 midnights. Coding Level of Care Code Acute Code for Chg Fwd Diagnoses Chest pain R07.9 Elevated blood pressure reading R03.0
[2024-04-03 07:20] VITALS: BP 119/73; PULSE 92; RESP 24; TEMP 36.5; O2SAT 99
[2024-04-03 08:27] VITALS: RESP 21; O2SAT 96
[2024-04-03] MEDS: pantoprazole DR 40 mg Tablet PO (08:27)
[2024-04-03] MEDS: aspirin 325 mg Tablet PO (08:27)
[2024-04-03] MEDS: morphine 4 mg/mL SDV 1 mL IVP (08:27)
--- NOTE | 2024-04-03 08:48 | PM.DCS ---
Discharge Providers Date of Admission: 04/02/24 02:46 Date of Discharge: April 03, 2024 Attending Provider at Admission: Zhao Pate Attending Provider at Discharge: Lalita Callahan MD Diagnoses at Discharge Discharge Diagnosis (1) Chest pain: Status: Acute (2) Elevated blood pressure reading: Status: Acute Reason for Visit Reason for Visit: Chest Pains\Jaw\Neck Hospital Course Hospital Course 43-year-old female who was admitted for management evaluation of atypical chest pain which was radiating towards her left shoulder and jaw line, it was deemed atypical but secondary to strong family history cardiology was consulted patient went for coronary angiogram, unremarkable coronary angiogram, no stents were placed, her lipase was high however without intervention it became normal next day, patient has history of gastric sleeve, regained her lost weight, she is struggling to shed off weight now, she was asking about newer drugs in the market I have asked her to follow-up with her PCP, for her tachycardia and episodic hypertension I will prescribe metoprolol, she does have atelectasis we will only give her 3 days of Augmentin for now, she will resume her home medications. Her echo was unremarkable EF 55 to 60%. CT abdomen pelvis is unremarkable. Physical Exam Narrative: Awake and alert No active pain GCS 15 Nonfocal neuroexam Discharge Data Studies Completed and Pending Completed Studies During Hospitalization Category Date Time Status CT abdomen pelvis wo con [id number] Routine Cat Scan 04/02/24 18:[address] chest wo con [id number] Stat Cat Scan 04/02/24 02:08 Completed XR chest 1V portable [id number] Stat Exams 04/01/24 22:09 Completed CV. 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 Ovoid opacity in the right cardiophrenic angle likely reflects prominent epicardial fat pad. CT or lateral view can be obtained as clinically indicated. 2. No definitive evidence of acute cardiopulmonary disease. Chest CT 04/02/24 02:08 IMPRESSION: 1. Positive for a simple pericardial cyst. 2. Negative for acute chest pathology. Abdomen/Pelvis CT 04/02/24 18:47 IMPRESSION: Over the past day there has been interval development of extensive bibasilar atelectasis along with tiny pleural effusions. This could signify developing bibasilar pneumonia. Laboratory Results WBC 9.00 10^3/uL (3.29-11.43) 04/03/24 04:01 RBC 4.13 10^6/uL (3.85-5.65) 04/03/24 04:01 Hgb 11.80 g/dL (11.27-16.99) 04/03/24 04:01 Hct 36.7 % (36-47) 04/03/24 04:01 MCV 88.9 fl (85-98) 04/03/24 04:01 MCH 28.6 pg (27-33) 04/03/24 04:01 MCHC 32.2 g/dL (30-55) 04/03/24 04:01 RDW 12.2 % (12.1-15.1) 04/03/24 04:01 Plt Count 220 10^3/cmm (157-399) 04/03/24 04:01 MPV 9.5 fL (7.4-10.4) 04/03/24 04:01 Neut % (Auto) 64.9 % 04/03/24 04:01 Lymph % (Auto) 19.2 % 04/03/24 04:01 Yell % (Auto) 14.6 % 04/03/24 04:01 Eos % (Auto) 0.7 % 04/03/24 04:01 Baso % (Auto) 0.2 % 04/03/24 04:01 Neut # (Auto) 5.84 10^3/uL (1.8-7.7) 04/03/24 04:01 Lymph # (Auto) 1.7 10^3/uL (0.8-4.8) 04/03/24 04:01 Yell # (Auto) 1.3 10^3/uL (0.2-0.9) H 04/03/24 04:01 Eos # (Auto) 0.1 10^3/uL (0.0-0.8) 04/03/24 04:01 Baso # (Auto) 0.0 10^3/uL (0.0-0.1) 04/03/24 04:01 Nucleated RBC % (auto) 0 % 04/03/24 04:01 Nucleated RBCs # 0.0 /100WBC 04/03/24 04:01 D-Dimer <= 0.27 ug/mLFEU (0-0.59) 04/01/24 22:25 Sodium 137 mmol/L (136-145) 04/03/24 04:01 Potassium 4.2 mmol/L (3.5-5.1) 04/03/24 04:01 Chloride 104 mmol/L (98-107) 04/03/24 04:01 Carbon Dioxide 23 mmol/L (22-29) 04/03/24 04:01 Anion Gap 14.2 (5-19) 04/03/24 04:01 BUN 12 mg/dL (6-20) 04/03/24 04:01 Creatinine 0.7 mg/dL (0.5-0.9) 04/03/24 04:01 GFR Calculation 91.8 mL/min (90-130) 04/03/24 04:01 Glucose 105 mg/dL (65-115) 04/03/24 04:01 Estimat Average Glucose 105 04/02/24 00:00 Hemoglobin A1c 5.3 % (4.0-6.0) 04/02/24 00:00 Calculated Osmolality 284 mOsm/kg (285-295) L 04/03/24 04:01 Calcium 8.8 mg/dL (8.5-10.5) 04/03/24 04:01 Total Bilirubin 0.3 mg/dL (0.15-1.2) 04/03/24 04:01 AST 10 U/L (0-32) 04/03/24 04:01 ALT 18 U/L (0-33) 04/03/24 04:01 Alkaline Phosphatase 66 U/L (35-105) 04/03/24 04:01 Troponin T Baseline < 6 ng/L (0-10) 04/01/24 22:25 Troponin T 120 Minute 6.00 ng/L (0-10) 04/02/24 00:25 Delta Troponin T 0.39170 ABS# (0-10) 04/02/24 00:25 Troponin T Hi Sens 6Hr 6.00 ng/L (0-10) 04/02/24 04:30 Troponin T Hi Sens 6Hr Delta 0.15103 ng/L (0-12) 04/02/24 04:30 Total Protein 6.5 g/dL (6.6-8.7) L 04/03/24 04:01 Albumin 3.5 g/dL (3.5-5.2) 04/03/24 04:01 Globulin 3.0 g/dL (1.3-4.6) 04/03/24 04:01 Triglycerides 62 mg/dL (0-150) 04/02/24 04:30 Triglycerides 63 mg/dL (0-150) 04/02/24 04:30 Cholesterol 191 mg/dL (0-200) 04/02/24 04:30 LDL Cholesterol, Calc 120 mg/dL (50-129) 04/02/24 04:30 HDL Cholesterol 58 mg/dL (60-100) L 04/02/24 04:30 LDL/HDL Ratio 2.07 RATIO (0.00-3.22) 04/02/24 04:30 Cholesterol/HDL Ratio 3.29 mg/dL (0.0-4.40) 04/02/24 04:30 Lipase 43 U/L (13-60) 04/02/24 04:30 HCG, Qual Negative (Negative) 04/02/24 07:50 Vitals Last Vital Signs Temp 97.7 F 04/03/24 07:20 Pulse 92 04/03/24 07:20 Resp 21 H 04/03/24 08:27 BP 119/73 04/03/24 07:20 Pulse Ox 96 04/03/24 08:27 O2 Del Method Room Air 04/03/24 07:20 Discharge Plan Discharge Patient Disposition: Home Condition: Stable Prescriptions: New amoxicillin-pot clavulanate 875-125 mg tablet 1 tab PO BID Qty: 6 0RF metoprolol tartrate 25 mg tablet 25 mg PO BID PRN (Reason: pulse>90 or bp>130/90mmhg) Qty: 60 2RF Continued cyclobenzaprine 10 mg tablet 10 mg PO TID PRN (Reason: muscle spasms) buspirone 5 mg tablet 5 mg PO BID PRN (Reason: Anxiety) meloxicam 15 mg tablet 15 mg PO DAILY tramadol 50 mg tablet 50 mg PO DAILY PRN (Reason: Pain) dextroamphetamine-amphetamine 20 mg capsule,extended release 24hr 1 cap PO QAM pantoprazole 40 mg tablet,delayed release (DR/EC) 40 mg PO DAILY ondansetron 4 mg tablet,disintegrating See Rx Instructions .ROUTE .COMPLEX Rx Instructions: PLACE 1 TABLET ON TOP OF TONGUE AND ALLOW TO DISSOLVE 3 TIMES A DAY NEEDED FOR NAUSEA. vitamin A palmitate-vitamin D2 10,000-400 unit Tablet 1 tab PO DAILY Discharge Orders: Discharge Order (Routine); Ordered 04/03/24 Ordered By: Lalita Callahan Discharge Diet: Cardiac, Low Salt and Low Cholesterol Discharge Activity: Increase activity as tolerated Patient Instructions: Opioid Safety Discharge Attestations Time Spent in Discharge Care*: greater than 30 min Quality Metrics Clinical Quality Measures [ No reported AMI, CVA or VTE this stay] Coding Level of Care Code [facility] Chest pain R07.9 Elevated blood pressure reading R03.0
--- NOTE | 2024-04-03 10:27 | PC.CHAP ---
Pastoral Care Encounter/Spiritual Assessment Type of Contact [] Declined electrical installer visit [] Patient/Family/Request visit [] Outpatient visit [] Follow-up visit [] Physician referral [] Code/Alert [] Routine visit [] Staff referral [] Actively dying [] Patient sleeping [] Family support [] [] Out of room [] Palliative care [] [x] Receiving care in room [] Pre-surgical visit [] Trauma [] Long length of stay [] ICU visit [] Other: Relational/Emotional Strength [] Patient feels connected with others/family/visitors/staff [] Distress [] Loneliness/isolation [] Abandonment Spirituality of Patient [] Person of Teresa [] Attends Oriental Orthodox of their Teresa [] Believes in Prayer [] Reads Bible or Adventist materials [] There are Spiritual issues to be addressed Embosser Operator Interventions [x] Prayer [] Active listening [] Non-anxious presence [] Spiritual/emotional support [] Crisis/trauma care [] Spiritual counseling [] Bereavement support [] Provided bereavement packet [] Provided Bible/devotional materials [] Provided toy/stuffed animal, coloring book to patient or family member [] Provided Communion [] Anointing/Harts [] Salvation [] Completed spiritual assessment [] Other: Impact on Illness or Injury [] Angry [] Fearful [] Anxious [] Often cries [] Exhaustion [] Unable to work [] Unable to attend advent [] Unable to walk/stand [] Unable to read [] Unable to drive [] Unable to eat/drink [] Unable to sleep [] Unable to be with family [] Patient intubated [] Other: Summary Time spent with patient 1 min
[2024-04-03 11:06] VITALS: RESP 21; O2SAT 96
[2024-04-03] MEDS: nystatin cream 30 gm 1 APPLIC TOPICAL (11:14)
--- NOTE | 2024-04-03 12:11 | PC.NURSE ---
Patient is discharged to home. Patient drove herself home, due to her car being in the ED parking lot. Patient is going home to [place] in the next couple of days and will follow up with her PCP at that time. She stated understanding of her discharge paperwork.
== END 2024-04-03 11:50 | disposition home or self-care (01) ==
LOC: ER 04-02 01:37 → MEDSURG 04-02 02:39 → CSU 04-02 11:34
PROVIDERS: Internal Medicine; Admitting Provider Internal Medicine; Emergency Provider Emergency Medicine; Visit Provider Internal Medicine
DX: R07.89 Other chest pain (principal); R03.0 Elevated blood-pressure reading, without diagnosis of hypertension; Z82.49 Family history of ischemic heart disease and other diseases of the circulatory system; Z98.84 Bariatric surgery status; R00.0 Tachycardia, unspecified; I10 Essential (primary) hypertension; J98.11 Atelectasis; E66.9 Obesity, unspecified; Z68.41 Body mass index [BMI] 40.0-44.9, adult; I48.0 Paroxysmal atrial fibrillation; E28.2 Polycystic ovarian syndrome
CPT/HCPCS: 36415; 71045; 71250; 74176; 80053; 80061; 81025; 83036; 83690; 84478; 84484; 85025; 85378; 93005; 93306; 93458; 96372; 96374; 96375; 96376; 99152; 99153; 99285; C1760; C1769; C1887; C1894; C9113; G0269; G0378; J1644; J1650; J2250; J2270; J2405; J3010; J7030; Q9967

== ENCOUNTER 2024-04-03 21:05 | Emergency (ER) | payer OTHER, SELFPAY ==
[2024-04-03 21:11] VITALS: BP 145/75; PULSE 88; RESP 15; TEMP 37.3; O2SAT 98
--- NOTE | 2024-04-03 21:34 | W.ED.FEVER ---
HPI - Fever General: Chief Complaint: Fever Stated Complaint: Fever Time Seen by Provider: 04/03/24 21:29 Source: patient Mode of arrival: ambulatory Limitations: no limitations History of Present Illness: Patient is a 43-year-old female presents to ED today with complaint of a fever. Patient was recently admitted to the hospital and actually just discharged earlier this afternoon. Following discharge she states she began running a fever as high as 101. She was admitted for chest pain and subsequently underwent cardiac workup including a normal echocardiogram and angiogram. She states while in the hospital she did have a CT scan of her chest which showed atelectasis versus pneumonia. She is currently on Augmentin. She does feel slightly short of breath. She has not had any productive or worsening cough. She has no chest pain. She has no abdominal pain. No urinary symptoms. Patient clinically appears in no acute distress. She arrives with stable vital signs apart from low-grade fever of 99.2. MD elicited complaint: fever Onset (ago): hour(s) Measured temperature: 101 F Context: recent antibiotic use and recent hospitalization Exacerbating factors: nothing Relieving factors: nothing Associated symptoms: Deny abdominal pain, flank pain, chest pain, diarrhea, dysuria, extremity pain, headache(s), nasal congestion, nausea, sinus pain or vomiting Treatments prior to arrival fever: none Review of Systems Const: Reports: fever(s) ENMT: Denies: throat pain, odynophagia, nasal discharge, nasal congestion or sinus pain Card: Denies: chest pain, palpitations, irregular heart rhythm, edema, swelling of feet/ankles, lightheadedness, syncope, pre-syncope, dyspnea on exertion or leg pain with exertion Resp: Reports: dyspnea and pain on inspiration; Denies: productive cough, non-productive cough, wheezing, hemoptysis or chest congestion GI: Denies: abdominal pain, nausea, vomiting or diarrhea : Denies: flank pain, difficulty voiding, dysuria, urinary frequency, urinary urgency or urinary hesitancy Musc: Denies: neck pain, back pain, extremity pain or joint pain Skin/Breast: Denies: rash Neuro: Denies: headache(s), numbness in extremities, weakness in extremities, sensory changes or dizziness [facility] ED PFSH: Medical History Paroxysmal atrial fibrillation Pericardial cyst Migraines ADHD PCOS (polycystic ovarian syndrome) Surgical History History of sleeve gastrectomy Family History Family/Other Autism Child Father Dementia Social History Smoking and tobacco/nicotine status: never used tobacco/nicotine Alcohol intake: never Lives independently: Yes Household members: family Current occupational status: employed Physical Exam Const: COMMON NORMALS: no acute distress, patient oriented x3, no limitations, alert and well nourished GENERAL APPEARANCE: cooperative NUTRITIONAL APPEARANCE: obese ORIENTATION/CONSCIOUSNESS: Yes awake, Yes oriented to person, Yes oriented to place and Yes oriented to time HENMT: COMMON NORMALS: normocephalic, atraumatic and TM's normal bilaterally HEAD & SCALP: normal to inspection, normocephalic and atraumatic FACE & SINUS: normal facial exam TYMPANIC MEMBRANE: TM's normal bilaterally THROAT: posterior oropharynx normal and tonsils normal Neck/C-Spine: COMMON NORMALS: no lymphadenopathy and no meningeal signs Resp: COMMON NORMALS: normal respiratory effort and clear to auscultation bilaterally AUSCULTATION: clear to auscultation bilaterally Cardio: COMMON NORMALS: regular rate and regular rhythm RATE: regular rate RHYTHM: regular rhythm GI: COMMON NORMALS: Normal to inspection, nondistended, normoactive bowel sounds present, Soft to palpation and non-tender PALPATION: Yes Soft to palpation : COMMON NORMALS: Yes no CVA tenderness BLADDER/KIDNEY EXAM: Yes no CVA tenderness Back/Pelvis: COMMON NORMALS: no CVA tenderness and thoracic and lumbar spine normal to inspection Extremity: COMMON NORMALS: no clubbing, cyanosis or edema, no calf tenderness and no pedal edema GENERAL: Yes normal exam except as noted Neuro: ALISON COMA SCALE: document GCS findings Alison coma scale eye opening: Spontaneous [place] coma scale verbal response: Orientated Alison coma scale motor response: Obey commands [place] coma scale total score: 15 COMMON NORMALS: patient oriented x3 SENSORIUM/ORIENTATION: Yes alert, Yes oriented to person, Yes oriented to place and Yes oriented to time MENINGEAL SIGNS: Yes no meningeal signs Skin: COMMON NORMALS: no rashes or lesions noted GENERAL SKIN EXAM: no rashes or lesions noted Course Vital Signs: Vital signs: Vital Signs Temperature 99.2 F 04/03/24 21:11 Pulse Rate 97 04/03/24 23:02 Respiratory Rate 15 04/03/24 21:11 Blood Pressure 115/79 04/03/24 23:02 Pulse Oximetry 97 04/03/24 23:02 Oxygen Delivery Me thod Room Air 04/03/24 23:02 MDM - Fever Medical Decision Making Patient clinically appears no acute distress. Her vital signs are stable upon arrival apart from low-grade temperature of 99.2. Her blood work here showing a normal white count. Her UA is clear. Remainder of labs are unremarkable. Her CXR showing no significant differences when compared to previous. She was discharged with antibiotics (Augmentin) earlier today. Recommend she fill and start taking these. Return ED precautions discussed with patient who verbalized understanding. Otherwise I would like her to follow-up with PCP. Medical Records I reviewed the patient's medical records. Lab Data I reviewed the patient's lab results. 04/03/24 22:05 04/03/24 22:05 Laboratory Results WBC 8.48 10^3/uL (3.29-11.43) 04/03/24 22:05 RBC 4.80 10^6/uL (3.85-5.65) 04/03/24 22:05 Hgb 13.70 g/dL (11.27-16.99) 04/03/24 22:05 Hct 42.0 % (36-47) 04/03/24 22:05 MCV 87.5 fl (85-98) 04/03/24 22:05 MCH 28.5 pg (27-33) 04/03/24 22:05 MCHC 32.6 g/dL (30-55) 04/03/24 22:05 RDW 12.2 % (12.1-15.1) 04/03/24 22:05 Plt Count 230 10^3/cmm (157-399) 04/03/24 22:05 MPV 9.4 fL (7.4-10.4) 04/03/24 22:05 Neut % (Auto) 69.3 % 04/03/24 22:05 Lymph % (Auto) 17.9 % 04/03/24 22:05 Jenkins % (Auto) 11.3 % 04/03/24 22:05 Eos % (Auto) 0.6 % 04/03/24 22:05 Baso % (Auto) 0.4 % 04/03/24 22:05 Neut # (Auto) 5.88 10^3/uL (1.8-7.7) 04/03/24 22:05 Lymph # (Auto) 1.5 10^3/uL (0.8-4.8) 04/03/24 22:05 Jenkins # (Auto) 1.0 10^3/uL (0.2-0.9) H 04/03/24 22:05 Eos # (Auto) 0.1 10^3/uL (0.0-0.8) 04/03/24 22:05 Baso # (Auto) 0.0 10^3/uL (0.0-0.1) 04/03/24 22:05 Nucleated RBC % (auto) 0 % 04/03/24 22:05 Nucleated RBCs # 0.0 /100WBC 04/03/24 22:05 Sodium 133 mmol/L (136-145) L 04/03/24 22:05 Potassium 4.0 mmol/L (3.5-5.1) 04/03/24 22:05 Chloride 97 mmol/L (98-107) L 04/03/24 22:05 Carbon Dioxide 19 mmol/L (22-29) L 04/03/24 22:05 Anion Gap 21.0 (5-19) H 04/03/24 22:05 BUN 11 mg/dL (6-20) 04/03/24 22:05 Creatinine 0.6 mg/dL (0.5-0.9) 04/03/24 22:05 GFR Calculation 109.6 mL/min (90-130) 04/03/24 22:05 Glucose 80 mg/dL (65-115) 04/03/24 22:05 Calculated Osmolality 274 mOsm/kg (285-295) L 04/03/24 22:05 Calcium 8.9 mg/dL (8.5-10.5) 04/03/24 22:05 Total Bilirubin 0.3 mg/dL (0.15-1.2) 04/03/24 22:05 AST 39 U/L (0-32) H 04/03/24 22:05 ALT 37 U/L (0-33) H 04/03/24 22:05 Alkaline Phosphatase 86 U/L (35-105) 04/03/24 22:05 Total Protein 7.3 g/dL (6.6-8.7) 04/03/24 22:05 Albumin 4.0 g/dL (3.5-5.2) 04/03/24 22:05 Globulin 3.3 g/dL (1.3-4.6) 04/03/24 22:05 Urine Color Yellow (Yellow) 04/03/24 21:43 Urine Appearance Clear (CLEAR) 04/03/24 21:43 Urine pH 8 (5-7) H 04/03/24 21:43 Ur Specific [place] 1.015 (1.005-1.030) 04/03/24 21:43 Urine Protein Neg (Negative) 04/03/24 21:43 Urine Glucose (UA) Norm (Normal) 04/03/24 21:43 Urine Ketones Negative (Negative) 04/03/24 21:43 Urine Blood Neg (Negative) 04/03/24 21:43 Urine Nitrate Negative (Negative) 04/03/24 21:43 Urine Bilirubin Neg (Negative) 04/03/24 21:43 Prot Sulfosalicylic Acd Negative (Negative) 04/03/24 21:43 Urine Urobilinogen Neg mg/dL (Negative) 04/03/24 21:43 Ur Leukocyte Esterase Negative (Negative) 04/03/24 21:43 XR interpretation done by ED provider, pending radiology final review Discharge Plan Discharge Patient Disposition: Home Clinical Impression: Fever Qualifiers: Fever type: unspecified Qualified Code(s): R50.9 - Fever, unspecified Condition: Stable Prescriptions: No Action cyclobenzaprine 10 mg tablet 10 mg PO TID PRN (Reason: muscle spasms) buspirone 5 mg tablet 5 mg PO BID PRN (Reason: Anxiety) meloxicam 15 mg tablet 15 mg PO DAILY tramadol 50 mg tablet 50 mg PO DAILY PRN (Reason: Pain) dextroamphetamine-amphetamine 20 mg capsule,extended release 24hr 1 cap PO QAM pantoprazole 40 mg tablet,delayed release (DR/EC) 40 mg PO DAILY ondansetron 4 mg tablet,disintegrating See Rx Instructions .ROUTE .COMPLEX Rx Instructions: PLACE 1 TABLET ON TOP OF TONGUE AND ALLOW TO DISSOLVE 3 TIMES A DAY NEEDED FOR NAUSEA. vitamin A palmitate-vitamin D2 10,000-400 unit Tablet 1 tab PO DAILY amoxicillin-pot clavulanate 875-125 mg tablet 1 tab PO BID Qty: 6 0RF metoprolol tartrate 25 mg tablet 25 mg PO BID PRN (Reason: pulse>90 or bp>130/90mmhg) Qty: 60 2RF Discharge Orders: Discharge ED (Routine); Ordered 04/03/24 Ordered By: Ester Szymanski Coding Level of Care Code ED Hog Cooler for Savi Peter
[2024-04-03 21:38] VITALS: BP 143/93; PULSE 89; O2SAT 99
--- NOTE | 2024-04-03 21:39 | XRR_ITS ---
PROCEDURE INFORMATION: Exam: XR Chest Exam date and time: 04/03/2024 10:13 PM Age: 43 years old Clinical indication: Dyspnea and fever and shortness of breath; Patient HX: PT had an angiogram on Monday. TECHNIQUE: Imaging protocol: Radiologic exam of the chest. Views: 1 view. COMPARISON: [facility] chest [facility] [id number] 04/02/2024 2:15 AM FINDINGS: Lungs: Bibasilar atelectasis versus minimal infiltrate. Pleural spaces: Unremarkable. No pleural effusion. No pneumothorax. Heart/Mediastinum: Unremarkable. No cardiomegaly. Bones/joints: Unremarkable. XR/XR chest 1V portable [id number] IMPRESSION: Bibasilar atelectasis versus minimal infiltrate.
[2024-04-03 21:56] LABS: Add Urine Microscopic? NO; Charge for UA Resulting for Rev
[2024-04-03 22:05] LABS: Bilirubin Urine Neg (Negative); Blood Urine Neg (Negative); Glucose Urine UA Norm (Normal); Ketones Urine Negative (Negative); Leukocyte Esterase Urine Negative (Negative); Nitrate Urine Negative (Negative); Protein Urine Neg (Negative); Specific Gravity, Urine 1.015 (1.005-1.030); Sulfosalicylic Acid Urine Negative (Negative); Urine Appearance Clear (CLEAR); Urine Color Yellow (Yellow); Urobilinogen Urine Neg (Negative); pH Urine 8 (5-7)
[2024-04-03 22:10] LABS: Basophils % 0.4 %; Eosinophils # 0.1 10^3/uL (0.0-0.8); Eosinophils % 0.6 %; Lymphocytes # 1.5 10^3/uL (0.8-4.8); Lymphocytes % 17.9 %; Mean Corpuscular HGB Conc 32.6 g/dL (30-55); Mean Corpuscular Hemoglobin 28.5 pg (27-33); Mean Corpuscular Volume 87.5 fl (85-98); Mean Platelet Volume 9.4 fL (7.4-10.4); Monocytes % 11.3 %; Neutrophils # 5.88 10^3/uL (1.8-7.7); Neutrophils % 69.3 %; Nucleated Red Blood Cells % 0 %; Platelet Count 230 10^3/cmm (157-399); Red Cell Distribution Width 12.2 % (12.1-15.1); White Blood Count 8.48 10^3/uL (3.29-11.43)
[2024-04-03 22:40] LABS: Alanine Aminotransferase 37 U/L (0-33); Alkaline Phosphatase 86 U/L (35-105); Blood Urea Nitrogen 11 mg/dL (6-20); Calcium 8.9 mg/dL (8.5-10.5); Chloride 97 mmol/L (98-107); Creatinine Clr Calc Pharmacy 156.0703; Globulin 3.3 g/dL (1.3-4.6); Glomerular Filtration Rate 109.6 mL/min (90-130); Glucose 80 mg/dL (65-115); Osmolality Calculated 274 mOsm/kg (285-295); Sodium 133 mmol/L (136-145); Total Bilirubin 0.3 mg/dL (0.15-1.2); Total Protein 7.3 g/dL (6.6-8.7)
[2024-04-03 22:46] LABS: Aspartate Amino Transferase 39 U/L (0-32)
[2024-04-03 22:57] LABS: Carbon Dioxide 19 mmol/L (22-29)
[2024-04-03 23:02] VITALS: BP 115/79; PULSE 97; O2SAT 97
[2024-04-04 02:04] LABS: Adenovirus Not Detected (NOT DETECT); Chlamydia Pneumoniae Not Detected (NOT DETECT); Coronavirus 229E,HKU1,NL63,OC4 Not Detected (NOT DETECT); Human Metapneumovirus Not Detected (NOT DETECT); Human Rhinovirus/Enterovirus Not Detected (NOT DETECT); Influenza A Not Detected (NOT DETECT); Influenza A H1 Not Detected (NOT DETECT); Influenza A H1-2009 Not Detected (NOT DETECT); Influenza A H3 Not Detected (NOT DETECT); Influenza B Not Detected (NOT DETECT); Mycoplasma Pneumoniae Not Detected (NOT DETECT); Parainfluenza Virus Type 1 Not Detected (NOT DETECT); Parainfluenza Virus Type 2 Not Detected (NOT DETECT); Parainfluenza Virus Type 3 Not Detected (NOT DETECT); Parainfluenza Virus Type 4 Not Detected (NOT DETECT); Respiratory Syncytial Virus A Not Detected (NOT DETECT); Respiratory Syncytial Virus B Not Detected (NOT DETECT); SARS-COV-2 Not Detected (NOT DETECT)
--- NOTE | 2024-04-04 07:47 | DCPLANNER ---
message sent for er f/u
== END 2024-04-04 00:14 | disposition home or self-care (01) ==
PROVIDERS: Emergency Provider Physician Assistant
DX: R50.9 Fever, unspecified (principal)
CPT/HCPCS: 36415; 71045; 80053; 81003; 85025; 87486; 87581; 87633; 99284